=== PATIENT | male | born 1980 | race American Indian/Alaskan Native ===

== ENCOUNTER 2016-06-17 11:43 | Emergency (ER) | payer SELFPAY ==
[2016-06-17 12:43] VITALS: BP 141/79
[2016-06-17] MEDS ORDERED: D5NS 0.2% 1,000 ML IV SCH (13:00)
[2016-06-17 13:20] LABS: Basophils % (Auto) 0.3 % (0.0-1.8); Hematocrit 36.1 % (35.5-45.6); Hemoglobin 12.5 gm/dl (11.8-15.2); Mean Corpuscular HGB Conc 35 % (32-34); Mean Corpuscular Hemoglobin 33 pg (28-32); Mean Corpuscular Volume 96 fl (84-94); Platelet Count 290 K/mm3 (140-440); Red Blood Count 3.77 M/mm3 (3.65-5.03); Red Cell Distribution Width 15.1 % (13.2-15.2); Reticulocyte % 5.56 % (0.78-2.58); White Blood Count 12.9 K/mm3 (4.5-11.0)
[2016-06-17 13:37] LABS: Bilirubin,Urine NEG (Negative); Blood,Urine NEG (Negative); Ketones,Urine TR mg/dL (Negative); Leukocyte Esterase,Urine NEG (Negative); Nitrite,Urine NEG (Negative); Protein,Urine <15 mg/dL mg/dL (Negative)
[2016-06-17 13:40] LABS: Alanine Aminotransferase 37 units/L (7-56); Albumin 4.6 g/dL (3.9-5); Albumin/Globulin Ratio 1.4 %; Alkaline Phosphatase 110 units/L (35-129); Anion Gap 17 mmol/L; Bilirubin,Total 3.1 mg/dL (0.1-1.2); Blood Urea Nitrogen 9 mg/dL (9-20); Calcium 9.6 mg/dL (8.4-10.2); Carbon Dioxide 27 mmol/L (22-30); Chloride 101.2 mmol/L (98-107); Glucose 121 mg/dL (75-100); Lipase 17 units/L (13-60); Potassium 4.3 mmol/L (3.6-5.0); Sodium 141 mmol/L (137-145)
== END 2016-06-17 22:59 | disposition left against medical advice (07) ==
LOC: ED 11:43
DX: D57.00 Hb-SS disease with crisis, unspecified (principal); Z53.21 Procedure and treatment not carried out due to patient leaving prior to being seen by health care provider
CPT/HCPCS: 36415; 80053; 81001; 83690; 85025; 85045